=== PATIENT | female | born 1950 | race Caucasian/White ===

== ENCOUNTER 2019-02-24 07:38 | Inpatient (IN) | payer MEDICARE ==
--- NOTE | 2019-02-11 14:40 | HP ---
PREOPERATIVE HISTORY AND PHYSICAL: DATE OF ADMISSION/SURGERY: 02/24/19. DATE OF OFFICE VISIT: 02/11/19. ATTENDING PHYSICIAN: Dr. Johana Briones.* (DICTATED BY GILLIAN CARRILLO) SURGERY SCHEDULED: Right total knee arthroplasty. CHIEF COMPLAINT: Right knee pain. HISTORY OF PRESENT ILLNESS: Ms. Reilly is a 69-year-old female who has had right knee pain over the last two years. It has become 6 out of 10 daily aching pain along the medial and lateral joint line. She has difficulty walking more than one block because of knee pain. She has tried antiinflammatories, lidocaine patches, Percocet, physical therapy, steroid injections, and viscosupplementation without relief of her right knee pain. She now elected to proceed with total knee arthroplasty which is scheduled with Dr. Briones for 02/24/19. PAST MEDICAL HISTORY: Significant for hypertension, COPD, pseudo valve, ulcerative colitis, hypothyroidism, depression, anxiety. PAST SURGICAL HISTORY: She has a right bunion surgery and left total hip arthroplasty. CURRENT MEDICATIONS: 1. Apriso 0.375 g 4 capsules by mouth daily for ulcerative colitis. 2. Omeprazole 40 mg p.o. daily. 3. Levothyroxine 25 mcg 1 to 1.5 tablets by mouth daily. 4. Losartan 25 mg p.o. daily. 5. Celebrex 200 mg daily. 6. Percocet 5/325 p.o. q.4 hours p.r.n. pain. 7. Amitriptyline 25 mg daily. 8. Zolpidem 10 mg p.o. daily. 9. Paroxetine 30 mg daily. 10. Advair Diskus 250/50 mcg per dose 1 puff twice daily. 11. Probiotic 250 mg 1 p.o. daily. 12. Vitamin D 1000 units 1 p.o. daily. ALLERGIES: To RELAFEN, which caused severe diarrhea. FAMILY HISTORY: Paternal, heart disease and hypertension. Maternal, cancer and stroke. SOCIAL HISTORY: She lives with her spouse. 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 She smokes about one-half pack cigarettes daily for the last 50 years. She denies use of alcohol or illicit drugs. REVIEW OF SYSTEMS: She denies recent loss of consciousness, lightheadedness, dizziness, shortness of breath, chest pain, palpitations. She has not had any recent GI symptoms. Denies genitourinary problems. PHYSICAL EXAMINATION GENERAL: Alert and oriented x3, in no acute distress. Pleasant and cooperative. VITAL SIGNS: Height 5 feet 10 inches tall, weight 170. Pulse 76, BP 132/76. HEENT: PERRLA. LUNGS: Clear to auscultation without wheeze. HEART: Regular rate and rhythm. No murmur auscultated. ABDOMEN: Soft and nontender. Normoactive bowel sounds. EXTREMITIES: The right knee fails to show any open lesions or excoriations. She has 15 degrees valgus deformity. There is no varus or valgus instability with mild MCL laxity. 10 to 120 degrees flexion. She has a mild effusion. She has 5/5 ankle dorsiflexion and plantar flexion strength. She has full sensation and circulation distally. IMPRESSION: Advanced osteoarthritis of the right knee. PLAN: The patient is scheduled for right total knee arthroplasty with Dr. Johana Briones, 02/24/19. Risks and benefits of the procedure fully discussed with her at her office visit today, 02/11/19. She will follow up with the office in roughly 10 to 14 days postoperatively. GILLIAN CARRILLO [id number]/[facility] #: [id number] FRANK
[~2019-02-24 07:38] MED LIST: Buffered Lidocaine 1% SYRIN* 1 ML/SYRINGE INTRADERM ONE; Lactated Ringers 1000 ML Bag* 1,000 ML IV SCH; Tranexamic Acid 1,000 MG in NS 0.9% 50 ML* (outpatient use) IV SCH
--- OUTSIDE RECORDS SUMMARY | 2019-02-24 07:41 | XMS REPORT | Continuity of Care Document ---
:1950 External Reference #:[id number] Author Name Johana Briones M.D. 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 Onset: 01/12/2019 Social History Type Date Description Comments Sex Unknown ETOH Use Denies alcohol use Tobacco Use Start: Unknown Light tobacco smoker (10 or fewer cigarettes/day) Smoking Status Reviewed: 01/12/19 Light tobacco smoker (10 or fewer cigarettes/day) Allergies, Adverse Reactions, Alerts Active Allergies Reaction Severity Comments Date Nabumetone 01/12/2019 Medications Active Medications SIG Qnty Indications Ordering Provider Date Apriso Take Four Unknown 0.375gm Caps ER 24HR Capsules By Mouth Every Day Omeprazole Take One Capsule Unknown 40mg Capsules DR By Mouth Every Day Levothyroxine Sodium Take 1 1 2 Unknown 25mcg Tablets By Mouth Tablets Once Daily Losartan Potassium Take One Tablet Unknown 25mg By Mouth Every Tablets Day Celecoxib Unknown 200mg Capsules Oxycodone-Acetaminophen Unknown 5-325mg Tablets Amitriptyline HCL Digiovanna, 25mg MD John Tablets Zolpidem Tartrate Digiovanna, 10mg MD John Tablets Paroxetine HCL Digiovanna, 30mg Tablets MD John Advair Diskus 1 puff twice a Unknown day 250-50mcg/Dose Aerosol Probiotic 1 by mouth every Unknown 250mg Capsules day Vitamin D High Potency 1 by mouth every Unknown day 1000Unit Capsules Immunizations Description No Information Available Vital Signs Date Vital Result Comment 01/12/2019 10:44am Height 70 inches 5'10" Weight 171.75 lb Heart Rate 78 /min BP Systolic 132 mmHg BP Diastolic 78 mmHg Respiratory Rate 12 /min Pain Level 3 BMI (Body Mass Index) 24.6 kg/m2 Results Description No Information Available Procedures Description No Information Available Medical Devices Description No Information Available Encounters Description No Information Available Assessments Date Code Description Provider 01/12/2019 M25.561 Pain in right knee Johana Briones M.D. 01/12/2019 M25.461 Effusion, right knee Johana Briones M.D. 01/12/2019 M17.11 Unilateral primary osteoarthritis, right knee Johana Briones M.D. Plan of Treatment Future Appointment(s):02/11/2019 10:00 am - Johana Briones M.D. at [facility]01/12/2019 - Johana Briones M.D.M25.561 Pain in right kneeNew Xrays:Kneeright 4+ VWS, Ordered: 01/12/19Follow up:Follow up: 7-10 days before [id number] Effusion, right kneeM17.11 Unilateral primary osteoarthritis, right knee Functional Status Description No Information Available Mental Status Description No Information Available Referrals Description No Information Available
[2019-02-24] MEDS ORDERED: ceFAZolin 2 GM in NS PREMIX(*) 2 GM/100 ML BAG IVPB ONE (08:48)
[2019-02-24] MEDS ORDERED: Buffered Lidocaine 1% SYRIN* 1 ML/SYRINGE INTRADERM ONE (08:48)
[2019-02-24] MEDS ORDERED: Bupivacaine 0.25% SDV* 30 ML ONE (11:00)
[2019-02-24] MEDS ORDERED: Midazolam* 1 MG/ML 5 ML VIAL (5 MG) ONE ×2 (11:04→11:46)
[2019-02-24] MEDS ORDERED: Bupivacaine 0.25% SDV PF* 10 ML VIAL INJ ONE (11:08)
[2019-02-24] MEDS ORDERED: Ropivacaine 0.2% * 2 MG/ML VIAL ONE (11:08)
[2019-02-24] MEDS ORDERED: fentaNYL* 50 MCG/ML 2 ML VIAL (100 MCG VIAL) ONE ×2 (11:26→14:35)
[2019-02-24] MEDS ORDERED: ROPIVACAINE 5 MG/ML 30 ML BTL (0.5%) ONE (12:08)
[2019-02-24] MEDS ORDERED: Ketorolac INJ* 30 MG/ML 1 ML VIAL ONE (13:16)
[2019-02-24] MEDS ORDERED: Midazolam* 1 MG/ML 2 ML VIAL (2 MG) ONE (13:23)
[2019-02-24] MEDS ORDERED: DiMENhydriNATE IV* 50 MG/ML VIAL IV PUSH PRN (13:28)
[2019-02-24] MEDS ORDERED: HYDROmorphone INJ1* 1 MG/ML SYRINGE IV PRN (13:28)
[2019-02-24] MEDS ORDERED: Naloxone* 0.4 MG/ML 1 ML VIAL IV PRN (13:28)
[2019-02-24] MEDS ORDERED: Ondansetron INJ* 2 MG/ML VIAL IV PRN ×2 (13:28→14:06)
[2019-02-24] MEDS ORDERED: diPHENhydraMINE IV* 50 MG/ML 1 ml VIAL (BENADRYL) IV PRN (14:06)
[2019-02-24] MEDS ORDERED: Polyethylene Glycol 3350* 17 GM PACKET PO PRN (14:06)
[2019-02-24] MEDS ORDERED: Temazepam CAP* 15 MG PO PRN (14:06)
[2019-02-24] MEDS ORDERED: Ondansetron ODT TAB* 4 MG PO PRN (14:06)
[2019-02-24] MEDS ORDERED: diPHENhydraMINE PO* 25 MG PO PRN (14:06)
[2019-02-24] MEDS ORDERED: oxyCODONE/Acetamin 5/325 MG* TAB PO PRN (14:06)
[2019-02-24] MEDS ORDERED: Magnesium Hydroxide LIQ* 30 ML UDC PO PRN (14:06)
[2019-02-24] MEDS: fentaNYL* 50 MCG/ML 2 ML VIAL (100 MCG VIAL) IV PRN ×4 (14:36→15:38)
[2019-02-24] MEDS: oxyCODONE/Acetamin 5/325 MG* TAB PO PRN ×3 (14:39→21:09)
[2019-02-24] MEDS ORDERED: oxyCODONE/Acetamin 5/325 MG* TAB ONE ×2 (14:39→15:14)
[2019-02-24] MEDS ORDERED: Nicotine* 2MG (FRUIT FLAVOR) GUM PO PRN (15:26)
[2019-02-24] MEDS: Lactated Ringers 1000 ML Bag* 1,000 ML IV SCH (16:20)
--- NOTE | 2019-02-24 17:14 | CONS ---
CC: Dr. Briones; Dr. John Ching CONSULTATION REPORT: DATE OF CONSULT: 02/24/19 TIME OF EVALUATION: 2 p.m. REQUESTING PHYSICIAN: Dr. Broines. PRIMARY CARE PROVIDER: Dr. John Ching. REASON FOR CONSULT: Management of comorbidities. HISTORY OF PRESENT ILLNESS: Ms. Reilly is a 69-year-old female with a past medical history of migra ine, depression, insomnia, chronic back pain, vertigo, COPD, reported ulcerative colitis, hypertensio n, who was admitted on 02/24/19 for an elective right total knee replacement. The patient had right knee pain for more than 2 years and despite outpatient treatments with anti-inf lammatory, lidocaine patch, Percocet, physical therapy, steroid injections and viscosupplementation, she did not have relief of her pain, reason why she was admitted today for right total knee arthropla sty. At the time of my evaluation, the patient is still in the PACU and she states that she is feeling wel l and knee pain is well controlled. She denies chest pain, palpitations, shortness of breath, nausea , or vomiting. PAST MEDICAL HISTORY: 1. Hypertension. 2. COPD and tobacco abuse. 3. Hyperlipidemia. 4. Hypothyroidism. 5. GERD. 6. Migraines. 7. Depression. 8. Chronic insomnia. 9. Chronic back pain. 10. Vertigo. 11. Recurrent UTIs. Although Dr. Briones's H and P mentions ulcerative colitis, I do not see this diagnosis on her PCP's no te and she actually had colonoscopy done in 2016 that had shown only polyps and diverticulosis. MEDICATION LIST: 1. Amitriptyline 25 mg p.o. at bedtime. 2. Celecoxib 200 mg p.o. daily. 3. Cholecalciferol 1000 units p.o. daily. 4. Ferrous sulfate 325 mg p.o. daily. 5. Advair 100/50 one puff inhaled b.i.d. 6. Probiotic 1 capsule p.o. daily. 7. Levothyroxine 25 mcg p.o. daily. 8. Losartan 25 mg p.o. daily. 9. Mesalamine 4 tablets p.o. daily. 10. Omeprazole 40 mg p.o. daily. 11. Percocet 1 tablet p.o. b.i.d. 12. Paroxetine 30 mg p.o. at bedtime. 13. Zolpidem 10 mg p.o. at bedtime. ALLERGIES: To MOLD, NABUMETONE, RAGWEED, POLLEN, SHELLFISH, and IV CONTRAST. FAMILY HISTORY: Father had a history of heart disease and hypertension. Mother had a history of can cer and CVA. SOCIAL HISTORY: The patient is a smoker up to 1 pack per day for many years. Occasional alcohol. Ball rrogate decision maker is her , Maurisio Reilly, phone number is [phone]. REVIEW OF SYSTEMS: A 14-point review of systems was performed and all the pertinent negative and pos itive findings are in the HPI. PHYSICAL EXAM: Vital Signs: Temperature 96.8, heart rate is 66, respiratory rate is 16, oxygen satu ration 98% on 2 L nasal cannula, blood pressure is 149/75. General: The patient is a pleasant, elder ly lady, lying in bed, in no acute distress. HEENT: Pupils are equal. Moist mucous membranes. CVS : Normal S1, S2. Regular rate and rhythm. Chest: Breath sounds present bilaterally, diminished, bu t with no added sounds. Abdomen is soft, nontender. Bowel sounds are present. Extremities: There i s a Cryo unit to the patient's right knee. Neuro: She is alert and oriented x3. She is recovering from spinal anesthesia. ASSESSMENT AND PLAN: Ms. Reilly is a 69-year-old female with a past medical history of hypertension, chronic obstructive pulmonary disease, tobacco abuse, possible ulcerative colitis, who was admitted for an elective right total knee arthroplasty. 1. Right total knee arthroplasty. Management as per Orthopedics. 2. Hypertension. It is controlled. We will continue her losartan with holding parameters. 3. Possible ulcerative colitis. We will continue her mesalamine. 4. Hypothyroidism. We will continue levothyroxine. 5. Depression/insomnia. We will continue her amitriptyline, paroxetine, and zolpidem. 6. Tobacco abuse. The patient will have nicotine supplementation available. 7. DVT prophylaxis will be with apixaban as per Orthopedics. 8. Code status is full. TIME SPENT: Approximately 52 minutes was spent with the patient's interview, medical records review, physical examination during admission, more than half of this time was spent [id number] with the p atient and coordination of care. [id number]/[facility] #: [id number]
--- NOTE | 2019-02-24 17:30 | OP ---
Operative Report - Blank - Operative Report Date of Operation: 02/24/19 Note: MARQUES GROVER 1950 Date of Surgery: 02/24/19 Johana Briones MD Senior Construction Estimator: Brent FRENCH did help throughout the procedure with preparation of the knee, wound retraction, manipulation of the knee, and wound closure. Anesthesiologist: Emilee Calabrese MD Anesthesia Type: Spinal Preoperative Diagnosis: Right severe degenerative osteoarthritis of the knee Postoperative Diagnosis: As above Procedure Performed: Right Total Knee Arthroplasty Tourniquet time: 43 minutes Complications: None Specimen: Bone and cartilage from the right knee joint sent to pathology. Hardware Used: Cemented Mensah and Nephew total knee hardware was used - For the femur a size 6 right narrow legion posterior stabilized femoral component, for the tibia a size 5 right ijeoma II tibial baseplate, for the insert a size 9mm 5-6 posterior stabilized articular polyethylene insert, and for the patella a size 32 3-peg all poly patella. Brief History/Indication: MARQUES GROVER was known in clinic and had a history of severe right knee pain and swelling. She failed conservative treatment with anti-inflammatories, pain pills, intra-articular injections and physical therapy. She elected to undergo right total knee arthroplasty due to continued pain and decreased quality of life. Radiographs showed severe end stage osteoarthritis of the knee with bone on bone contact. Informed consent was obtained from the patient. She understood the risks of surgery included but were not limited to: bleeding, infection, damage to nearby structures, intraoperative fracture, nerve palsy, failure of the hardware, early loosening, knee stiffness or loss of motion, anesthesia complications, stroke, heart attack , blood clot and . She wished to proceed. Intra-Operative Findings: Intraoperatively the patient was noted to have severe loss of cartilage in all 3 compartments of the knee. Description of the Procedure: MARQUES GROVER was identified in the preanesthesia unit. Her right knee was marked as the correct operative side. Informed consent was signed and placed in the chart. The patient was taken to the operating room and placed under anesthesia without complication. A aguirre catheter was placed. A tourniquet was placed on the right thigh. The right lower extremity was prepped and draped in the usual sterile fashion. Preoperative time-out was made to correctly identify the patient, side and site. Appropriate intraoperative antibiotics were given within one hour of incision. Tourniquet was inflated. A midline incision was made and carried sharply down to the extensor mechanism. A new 10 blade was used to make a standard medial parapatellar arthrotomy. The patella was subluxed laterally. Electrocautery was used to dissect soft tissue off the superomedial tibia to the midsagittal plane. The knee was flexed up. The anterior horn of the lateral meniscus and the ACL were sharply incised. A drill was used to enter the distal femur. The intramedullary distal femoral cutting guide was pinned on the distal femur. The oscillating saw was used to make the distal femoral cut. The external rotation guide was pinned on the distal femur and the distal femur was sized to a size 6. The size 6 multi-cutting jig was pinned on the distal femur. The oscillating saw was used to make the appropriate 4 chamfer cuts. Next the PCL was completely released. The extramedullary tibial cutting guide was pinned on the proximal tibia and the oscillating saw was used to make the proximal tibial cut perpendicular to the mechanical axis of the tibia. The bone was carefully removed. The knee was brought out into full extension. The spacer block was placed and had excellent fit with the knee in full extension. The medial and lateral ligaments were well balanced. The flexion and extension gaps were well balanced. The knee was flexed up. Lamina it operations manager was placed both medially and laterally. Any remaining meniscus was removed with electrocautery. Curved osteotome was used to remove any posterior osteophytes. The tibial tray and drop ameya were placed and confirmed a satisfactory tibial cut. The size 6 right narrow femoral trial was impacted onto the distal femur. This trial had excellent fit and stability. The box for the posterior stabilized implant was prepared using a box cut osteotome and a reamer. Next a tibial tray trial and 9 mm insert trial was placed. The knee was taken through a range of motion and had full extension to 130 degrees of flexion. Patellofemoral tracking was satisfactory. The patella was inverted and sized to a size 32. Three peg holes were drilled through the size 32 drill guide. The trial patella was placed and the knee was taken through a range of motion. There was satisfactory patellofemoral tracking. All trials were removed. The tibia was subluxed anteriorly and sized to a size 5. The proximal tibial was prepared with a size 5 keel punch. All bony cut surfaces were irrigated with sterile saline and dried. Final implants were cemented into place starting with the tibia, followed by the femur, and last the patella. A 9 mm insert trial was placed and the knee was brought into full extension. Tourniquet was turned down and the knee was copiously irrigated with sterile saline. Electrocautery was used to obtain meticulous hemostasis. Once the cement had fully cured, the insert trial was removed. Any excess cement was removed from around the hardware and capsule. Final insert chosen was a 9 mm posterior stabilized Ijeoma II articular insert size 5-6. Stability of the insert was checked and noted to be stable. The extensor mechanism was closed using number 1 vicryls. The rest of the incision was closed in a layered fashion using 0 and 2-0 vicryls. The skin was closed using 3-0 nylon suture. Sterile xeroform, 4x4s and webril were used to cover the incision. Charlie wrap and cold pack were used to cover the dressings. The patients anesthesia was reversed without difficulty. She was taken to the PACU in stable condition. Intended weight-bearing will be as tolerated.
[2019-02-24] MEDS: oxyCODONE TAB* 5 MG TAB PO PRN ×2 (17:56→22:49)
[2019-02-24] MEDS: Cyclobenzaprine TAB* 10 MG PO PRN (17:57)
[2019-02-24] MEDS: Morphine INJ* 2 MG/ML 1 ML SYRINGE (TWO MG - NEW SYRINGE VERSION) IV PRN ×2 (18:56→22:50)
[2019-02-24] MEDS: Mometasone/Formoter 100/5 MDI INH SCH (20:14)
[2019-02-24] MEDS: Zolpidem TAB* 10 MG PO SCH (21:09)
[2019-02-24] MEDS: Amitriptyline TAB* 25 MG PO SCH (21:09)
[2019-02-24] MEDS: Docusate CAP* 100 MG PO SCH (21:09)
[2019-02-24] MEDS: PARoxetine HCL TAB* 10 MG PO SCH (21:09)
[2019-02-24] MEDS: ceFAZolin 1 GM ADVAN(*) 1 GM in NS 0.9% 50 ML* 50 ML IVPB SCH (21:10)
[2019-02-24] MEDS: Magnesium Hydroxide LIQ* 30 ML UDC PO SCH (21:10)
[2019-02-24] MEDS: Acetaminophen TAB* 325 MG PO SCH (21:14)
[2019-02-25] MEDS: oxyCODONE/Acetamin 5/325 MG* TAB PO PRN ×2 (01:07→08:10)
[2019-02-25] MEDS: Cyclobenzaprine TAB* 10 MG PO PRN ×2 (01:08→20:17)
[2019-02-25] MEDS: traMADol TAB* 50 MG PO PRN ×2 (02:18→12:24)
[2019-02-25] MEDS: oxyCODONE TAB* 5 MG TAB PO PRN (03:36)
[2019-02-25] MEDS: Morphine INJ* 2 MG/ML 1 ML SYRINGE (TWO MG - NEW SYRINGE VERSION) IV PRN (03:36)
[2019-02-25] MEDS: Lactated Ringers 1000 ML Bag* 1,000 ML IV SCH ×2 (03:45→15:06)
[2019-02-25] MEDS: ceFAZolin 1 GM ADVAN(*) 1 GM in NS 0.9% 50 ML* 50 ML IVPB SCH ×2 (03:52→12:25)
[2019-02-25] MEDS: Levothyroxine TAB* 25 MCG TAB PO SCH (06:02)
[2019-02-25] MEDS: Acetaminophen TAB* 325 MG PO SCH ×3 (06:06→22:21)
[2019-02-25 06:55] LABS: Hematocrit 31 % (35-47); Hemoglobin 10.6 g/dL (12.0-16.0); Mean Platelet Volume 7.5 fL (7.4-10.4); Platelet Count 224 10^3/uL (150-450)
[2019-02-25 07:13] LABS: BUN/Creatinine Ratio 17.4 (8-20); Calcium 8.6 mg/dL (8.6-10.3); EGFR African American 78.9 (>60); EGFR Non-African American 65.2 (>60); Potassium 3.7 mmol/L (3.5-5.0)
[2019-02-25] MEDS: Mometasone/Formoter 100/5 MDI INH SCH ×2 (08:10→19:48)
[2019-02-25] MEDS ORDERED: Losartan TAB* 25 MG PO SCH (09:00)
[2019-02-25] MEDS: Cholecalciferol TAB* 1000 UNITS PO SCH (10:21)
[2019-02-25] MEDS: Vitamin THERAPEUTIC TAB PO SCH (10:21)
[2019-02-25] MEDS: Apixaban* 2.5 MG TAB PO SCH ×2 (10:22→20:18)
[2019-02-25] MEDS: Losartan TAB* 25 MG PO SCH (10:22)
[2019-02-25] MEDS: Pantoprazole TAB * 40 MG TAB PO SCH (10:23)
[2019-02-25] MEDS: Ferrous Sulfate TAB* 325 MG PO SCH (10:24)
[2019-02-25] MEDS: Magnesium Hydroxide LIQ* 30 ML UDC PO SCH ×2 (10:25→20:16)
[2019-02-25 10:38] LABS: TSH (Thyroid Stimulating Horm) 2.71 mcIU/mL (0.34-5.60)
--- NOTE | 2019-02-25 11:17 | PN ---
Progress Note - Progress Note Date of Service: 02/25/19 SOAP: Subjective: []Pt seen at bedside. She feels well without CP, SOB, dizziness or nausea. O2 desat to 88% on RA with PT, she was asymptomatic without any SOB at this time. She has COPD and is a longtime smoker since age 17, currently smoking 5-10 cigarettes per day which is a decrease from 1 pack/day previously. Objective: []Gen: Appears well, NAD, nasal cannula in place RLE: Right knee dressing CDI, thigh soft, DF/PF intact, DP2+, sensation intact to light touch distally Calves supple and nontender without erythema, edema or palpable cords Assessment: []POD 1 sp RTK Plan: []WBAT PT eliquis 2.5 mg po BID x 30 days post op Encouraged IS, wean off O2 as able Vital Signs Temp 98.1 F 02/25/19 07:26 Pulse 74 02/25/19 10:25 Resp 20 02/25/19 10:27 BP 110/52 02/25/19 10:25 Pulse Ox 94 02/25/19 10:25 Intake & Output 02/24/19 02/25/19 02/25/19 18:59 06:59 18:59 Intake Total 1500 1798 Output Total 700 525 Balance 800 1273 Weight 167 lb Intake: IV Fluids 1500 878 ABX - CEFAZOLIN 55 LR 1500 823 Oral 920 Output: Luis 500 525 Estimated Blood Loss 200 Laboratory Last Values Hgb 10.6 g/dL (12.0-16.0) L 02/25/19 06:22 Hct 31 % (35-47) L 02/25/19 06:22 Plt Count 224 10^3/uL (150-450) 02/25/19 06:22 MPV 7.5 fL (7.4-10.4) 02/25/19 06:22 Sodium 135 mmol/L (135-145) 02/25/19 06:22 Potassium 3.7 mmol/L (3.5-5.0) 02/25/19 06:22 Chloride 103 mmol/L (101-111) 02/25/19 06:22 Carbon Dioxide 26 mmol/L (22-32) 02/25/19 06:22 Anion Gap 6 mmol/L (2-11) 02/25/19 06:22 BUN 15 mg/dL (6-24) 02/25/19 06:22 Creatinine 0.86 mg/dL (0.51-0.95) 02/25/19 06:22 Est GFR ( Amer) 78.9 (>60) 02/25/19 06:22 Est GFR (Non-Af Amer) 65.2 (>60) 02/25/19 06:22 BUN/Creatinine Ratio 17.4 (8-20) 02/25/19 06:22 Glucose 118 mg/dL (70-100) H 02/25/19 06:22 Calcium 8.6 mg/dL (8.6-10.3) 02/25/19 06:22 TSH 2.71 mcIU/mL (0.34-5.60) 02/25/19 06:22
[2019-02-25] MEDS: Docusate CAP* 100 MG PO SCH (12:00)
[2019-02-25] MEDS: PTO:Mesalamine (NF) 0.375 GM CAP PO SCH (15:41)
[2019-02-25] MEDS: Morphine TAB Extended Release (*) 15 MG TAB.ER PO SCH (18:09)
[2019-02-25] MEDS: PARoxetine HCL TAB* 10 MG PO SCH (20:16)
[2019-02-25] MEDS: Amitriptyline TAB* 25 MG PO SCH (20:18)
[2019-02-25] MEDS: Zolpidem TAB* 10 MG PO SCH (22:15)
[2019-02-26 05:14] LABS: Hematocrit 29 % (35-47); Mean Platelet Volume 7.7 fL (7.4-10.4); Platelet Count 205 10^3/uL (150-450)
[2019-02-26] MEDS: Acetaminophen TAB* 325 MG PO SCH ×2 (05:28→12:58)
[2019-02-26] MEDS: Levothyroxine TAB* 25 MCG TAB PO SCH (05:28)
[2019-02-26] MEDS: Morphine TAB Extended Release (*) 15 MG TAB.ER PO SCH (05:28)
[2019-02-26] MEDS: Mometasone/Formoter 100/5 MDI INH SCH ×2 (08:30→09:30)
[2019-02-26] MEDS: traMADol TAB* 50 MG PO PRN (08:35)
[2019-02-26] MEDS: Cholecalciferol TAB* 1000 UNITS PO SCH (09:21)
[2019-02-26] MEDS: Losartan TAB* 25 MG PO SCH (09:21)
[2019-02-26] MEDS: Vitamin THERAPEUTIC TAB PO SCH (09:21)
[2019-02-26] MEDS: Apixaban* 2.5 MG TAB PO SCH (09:22)
[2019-02-26] MEDS: Ferrous Sulfate TAB* 325 MG PO SCH (09:23)
[2019-02-26] MEDS: Pantoprazole TAB * 40 MG TAB PO SCH (09:24)
[2019-02-26] MEDS: PTO:Mesalamine (NF) 0.375 GM CAP PO SCH (09:28)
[2019-02-26] MEDS: Magnesium Hydroxide LIQ* 30 ML UDC PO SCH (09:28)
--- NOTE | 2019-02-26 12:35 | DS ---
Orthopedic Discharge Summary - Discharge Summary Date of Admission:02/24/19 Date of Discharge: 02/26/19 Date of Surgery: 02/24/19 Attending Orthopedic Provider: Dr Briones Pre-operative Diagnosis: right knee osteoarthritis Operative Procedure: right total knee replacement Disposition of Patient: home with vns Condition of Patient: stable History: MARQUES GROVER is a 69 year old F with years of increasingly severe right knee pain. Patient has failed conservative management and has elected to undergo a right total knee replacement Hospital Course: MARQUES was admitted to [facility] on 02/24/19. Patient underwent a right total knee replacement without complication followed by a brief recovery in PACU and transfer to the Short Stay Surgical Unit in stable condition. Our hospitalist service, physical therapy and occupational therapy also participated in this patients care. Post-op day 1: patient was alert and in no acute distress. Dressing was clean, dry and intact. Operative extremity dorsiflexion and plantarflexion intact, sensation intact to light touch distally, DP2+. Post-op day two: dressing was changed, incision was clean , dry and intact. Patient was deemed to be medically and orthopedically stable for discharge. Physical therapy goals were met. Home Medications Medication Instructions Recorded Confirmed Type Amitriptyline TAB* [Elavil TAB*] 25 mg PO BEDTIME 02/11/19 02/24/19 History Cholecalciferol TAB* [Vitamin D 1,000 unit PO QAM 02/11/19 02/24/19 History TAB*] Ferrous Sulfate TAB* 325 mg PO QAM 02/11/19 02/24/19 History Fluticasone-Salmeterol 100-50* 1 puff INH BID 02/11/19 02/24/19 History [Advair Diskus 100-50*] L.acidoph,Paracasei, B.lactis 1 each PO QAM 02/11/19 02/24/19 History [Probiotic] Levothyroxine Sodium 25 mcg PO QAM 02/11/19 02/24/19 History Losartan TAB* [Cozaar TAB*] 1 tab PO QAM 02/11/19 02/24/19 History Mesalamine [Apriso] 4 tab PO QAM 02/11/19 02/24/19 History Omeprazole 40 mg PO QAM 02/11/19 02/24/19 History PARoxetine HCl [Paxil] 30 mg PO BEDTIME 02/11/19 02/24/19 History Zolpidem TAB* [Ambien*] 10 mg PO BEDTIME 02/11/19 02/24/19 History Aloe Vera cap PO DAILY 02/24/19 History Acetaminophen TAB* [Tylenol TAB*] 975 mg PO Q8HR tab 02/26/19 Rx Apixaban* [Eliquis*] 2.5 mg PO BID #60 tab 02/26/19 Rx oxyCODONE/Acetamin 5/325 MG* 1 tab PO Q4H PRN tab MDD 10 02/26/19 Rx [Percocet 5/325 TAB*] oxyCODONE/Acetamin 5/325 MG* 2 tab PO Q4H PRN #70 tab MDD 10 02/26/19 Rx [Percocet 5/325 TAB*] Discharge Instructions following Orthopedic Surgery: Activity: * Weight Bearing as tolerated * Continue physical therapy and occupational therapy exercises as shown * Home PT Wound care: * OK to shower on post-op day 3, no bathing, swimming, or submerging wound. * Use gentle soap, pat dry. Cover with gauze, MOE wrap or tape. * Visiting home nurse to do wound checks. Call Orthopedic office for: * Increased drainage * Redness * Increased pain * Fever Go to ER with shortness of breath or chest pain. Diet: * Regular diet * Increase fluids and fiber to prevent constipation. * Continue to use stool softeners, call office if no bowel motion within 48 hours. Medications See Home Medication List in your packet for medications that you should take after discharge. DVT Prophylaxis: Eliquis Dosin.5 mg, 1 tab every 12 hours x 30 days. Increases bleeding tendency Pain Control: Percocet Dosin/325 mg 1-2 tabs by mouth every 4-6 hours as needed for pain. Maximum of 10 tabs per day. Wean off as soon as pain allows, hold for sedation. Please note that Percocet contains Tylenol (acetaminophen). Maximum daily dose of Tylenol is 4000 mg from all sources. Antibiotics are required prior to any dental work. FOLLOW UP: Follow up with [Anselmo] Within 10-14 days, call for appointment Please call our office with any questions or concerns ([phone]) [facility]
[2019-02-26 12:49] VITALS: BP 92/28
[2019-02-26] MEDS ORDERED: Bisacodyl SUPP* 10 MG SUPP PR PRN (14:06)
--- NOTE | 2019-02-26 18:23 | PN ---
Subjective Date of Service: 02/26/19 Interval History: HOSPITALIST CONSULT NOTE Pt feels well, except for knee pain on movement. Denies SOB, cough, or signs of hypothyroidism. BPs at goal. Appetite is good. Objective Vital Signs - 8 hr 02/26/19 02/26/19 02/26/19 11:27 11:39 12:48 Temperature 98.7 F Pulse Rate 74 Respiratory 16 18 Rate Blood Pressure 106/45 92/28 (mmHg) O2 Sat by Pulse 92 Oximetry Oxygen Devices in Use Now: None Appearance: well appearing woman in NAD Eyes: No Scleral Icterus Ears/Nose/Mouth/Throat: Clear Oropharnyx, Mucous Membranes Moist Neck: NL Appearance and Movements; NL JVP, Trachea Midline Respiratory: Symmetrical Chest Expansion and Respiratory Effort, Clear to Auscultation Cardiovascular: NL Sounds; No Murmurs; No JVD, RRR Abdominal: NL Sounds; No Tenderness; No Distention, No Hepatosplenomegaly Extremities: No Edema Skin: No Rash or Ulcers Neurological: Alert and Oriented x 3 Result Diagrams: 02/26/19 04:42 02/25/19 06:22 Assess/Plan/Problems-Billing Assessment: 69W with COPD, MDD, hypothyroid, HTN, migraines, chronic back pain, is admitted 02/24 for elective right TKR. Tolerated procedure well. No complications from chronic medical issues. Continue home medications as before. Patient to go home with VNS today. Thank you for this interesting consult.
== END 2019-02-26 14:46 | disposition home health service (06) | DRG 470 ==
LOC: AA 07:38 → SSU 16:08
PROVIDERS: ADMIT Orthopaedic Surgery Adult Reconstructive Orthopaedic Surgery; ATTEND Orthopaedic Surgery Adult Reconstructive Orthopaedic Surgery
PROC: 0SRC0J9 Replacement of Right Knee Joint with Synthetic Substitute, Cemented, Open Approach (ICD-10-PCS; principal; 2019-02-24 11:30)
DX: M17.11 Unilateral primary osteoarthritis, right knee (principal); K51.90 Ulcerative colitis, unspecified, without complications; G43.909 Migraine, unspecified, not intractable, without status migrainosus; F32.9 Major depressive disorder, single episode, unspecified; G89.29 Other chronic pain; M54.9 Dorsalgia, unspecified; J44.9 Chronic obstructive pulmonary disease, unspecified; I10 Essential (primary) hypertension; E78.5 Hyperlipidemia, unspecified; E03.9 Hypothyroidism, unspecified; K21.9 Gastro-esophageal reflux disease without esophagitis; F51.04 Psychophysiologic insomnia; F17.210 Nicotine dependence, cigarettes, uncomplicated; G25.2 Other specified forms of tremor; M25.761 Osteophyte, right knee; E78.00 Pure hypercholesterolemia, unspecified; Z96.642 Presence of left artificial hip joint; M25.461 Effusion, right knee; K57.90 Diverticulosis of intestine, part unspecified, without perforation or abscess without bleeding; K63.5 Polyp of colon; Z88.8 Allergy status to other drugs, medicaments and biological substances; Z87.440 Personal history of urinary (tract) infections; Z91.041 Radiographic dye allergy status; Z91.013 Allergy to seafood; Z91.048 Other nonmedicinal substance allergy status; Z80.9 Family history of malignant neoplasm, unspecified; Z82.3 Family history of stroke; Z72.89 Other problems related to lifestyle
CPT/HCPCS: 36415; 80048; 84443; 85014; 85018; 85049; 88305; 88311; 94640; A9270-GY; C1776; G8978-GP-CK; G8979-GP-CI; J0690; J1885; J2250; J2270; J2795; J3010; J3490